=== PATIENT | female | born 1960 | race Hispanic/Latino ===

== ENCOUNTER 2022-05-26 13:28 | Emergency (ER) | payer OTHER, SELFPAY ==
[2022-05-26] VITALS (9 sets, daily range): BP systolic 118–153; BP diastolic 63–76; PULSE 63–86; RESP 16–22; TEMP 36.9–38.1; O2SAT 95–100; BMI 30.9
--- NOTE | 2022-05-26 13:52 | DI.RAD.S_ITS ---
PROCEDURE: XR CHEST 1V INDICATIONS: suspected sepsis TECHNIQUE: One view of the chest was acquired. COMPARISON: None. FINDINGS: Surgical changes and devices: None. Lungs and pleura: Lungs are clear. No pleural effusions or pneumothorax. Mediastinum: Mediastinal contours appear normal. Heart size is normal. Bones and chest wall: No suspicious bony lesions. Overlying soft tissues appear unremarkable. IMPRESSION: No acute cardiopulmonary abnormalities or focal airspace disease. Dictated by: Gage Lilly M.D. on 05/26/2022 at 14:45 Approved by: Gage Lilly M.D. on 05/26/2022 at 14:45
[2022-05-26 15:23] LABS: Add Manual Diff / Slide Review NO; Basophils Absolute Auto 0 /uL (0-100); Basophils Percent Auto 0.3 % (0-2); Eosinophils Absolute Auto 0 /uL (0-450); Eosinophils Percent Auto 0.3 % (2-4); Hematocrit 34.9 % (36-46); Hemoglobin 11.8 g/dL (12.0-16.0); Lymphocytes Absolute Auto 500 /uL (1100-4500); Lymphocytes Percent Auto 3.5 % (25-40); Mean Corpuscular HGB Conc 33.7 % (30-36); Mean Corpuscular Hemoglobin 30.5 PG (26-34); Mean Corpuscular Volume 90.4 fL (80-100); Monocytes Absolute Auto 1700 /uL (0-900); Monocytes Percent Auto 11.6 % (3-14); Neutrophils Absolute Auto 12600 /uL (1500-7000); Neutrophils Percent Auto 84.3 % (50-75); Platelet Count 277 X10^3/uL (150-400); Red Blood Cell Count 3.87 X10^6/uL (4.0-5.2); Red Cell Distribution Width 13.1 % (11.6-14.8); White Blood Cell Count 14.9 X10^3/uL (4.5-11.0)
[2022-05-26 15:33] LABS: INR 1.1 (0.9-1.3)
[2022-05-26 15:35] LABS: PTT Partial Thromboplastin Tim 29 SECONDS (26-36)
[2022-05-26 15:36] LABS: Lactate (Lactic Acid) 0.9 mmol/L (0.7-2.1)
[2022-05-26 15:37] LABS: Alanine Aminotransferase 46 IU/L (<35); Albumin 4.1 g/dL (3.5-5.0); Albumin Globulin Ratio 1.1 (1.0-2.8); Alkaline Phosphatase 134 U/L (38-126); Aspartate Aminotransferase 40 IU/L (14-36); Bilirubin Total 1.1 mg/dL (0.2-1.3); Blood Urea Nitrogen 16 mg/dL (7-17); Calcium 8.8 mg/dL (8.4-10.2); Carbon Dioxide 21 mmol/L (22-32); Chloride 94 mmol/L (98-107); Estimated Glomerular Filt Rate > 60 mL/min (>60); Globulin 3.9 g/dL (1.7-4.1); Glucose 128 mg/dL (80-110); HEMOLYSIS < 15 (0-50); Lipase 55 U/L (23-300); Potassium 3.4 mmol/L (3.4-5.1); Sodium 127 mmol/L (137-145)
[2022-05-26 15:54] LABS: Procalcitonin 0.61 ng/mL (<0.5)
[2022-05-26] MEDS: SODIUM CHLORIDE 0.9% 1,000 ML 1000 ML IV (15:59)
[2022-05-26 16:05] LABS: Adenovirus Not Detected (Not Detect); B. parapertussis Not Detected (Not Detecte); Bordetella pertussis Not Detected (Not Detecte); Chlamydophila pneumoniae Not Detected (Not Detect); Coronavirus 229E Not Detected (Not Detect); Coronavirus HKU1 Not Detected (Not Detect); Coronavirus NL 63 Not Detected (Not Detect); Coronavirus OC43 Not Detected (Not Detect); Human Metapneumovirus Not Detected (Not Detect); Human Rhinovirus/Enterovirus Not Detected (Not Detect); Influenza A Not Detected (Not Detect); Influenza B Not Detected (Not Detect); Mycoplasma pneumoniae Not Detected (Not Detect); Parainfluenza Virus 1 Not Detected (Not Detect); Parainfluenza Virus 2 Not Detected (Not Detect); Parainfluenza Virus 3 Not Detected (Not Detect); Parainfluenza Virus 4 Not Detected (Not Detect); Respiratory Syncytial Virus Not Detected (Not Detect); SARS- CoV-2 Not Detected (Not Detecte)
--- NOTE | 2022-05-26 16:41 | ED_ITS ---
HPI - Abdominal Pain General Chief Complaint: Abdominal Pain Stated Complaint: Fever, headache, nausea, r side abd pain Time Seen by Provider: 05/26/22 16:06 Source: patient and family Mode of arrival: Ambulatory History of Present Illness HPI narrative: Patient is a 62-year-old female history of hypothyroid diabetes presenting today with ongoing abdominal pain and fever. She was seen evaluated 2 days ago Abhishek mcgowan diagnosed with a UTI started on Macrobid. She would respiratory panel done at that time as well which was negative. She reports that she still has fever of 103. She has very minimal abdominal pain on the right side she is a prior history of cholecystectomy she has no flank pain no nausea vomiting. She is complaining of a mild headache but absolutely no neck pain. She is drinking fluids. Related Data Home Medications Medication Instructions Recorded Confirmed meloxicam 15 mg tablet 15 mg PO DAILY 07/10/18 12/13/20 omeprazole 20 mg capsule,delayed 20 mg PO DAILY 07/10/18 12/13/20 release sertraline 25 mg tablet 25 mg PO DAILY 07/10/18 12/13/20 simvastatin 10 mg tablet 10 mg PO QPM 07/10/18 12/13/20 Resmed Airsense 10 CPAP #1 ea 07/30/18 12/13/20 levothyroxine 75 mcg capsule 75 mcg PO DAILY 07/30/18 12/13/20 metformin PO BID 12/13/20 12/13/20 Allergies Allergy/AdvReac Type Severity Reaction Status Date / Time acetaminophen [From Percocet] Allergy Unknown Verified 12/13/20 09:36 oxycodone [From Percocet] Allergy Unknown Verified 12/13/20 09:36 Penicillins Allergy Unknown Verified 12/13/20 09:36 Review of Systems Review of Systems ROS Unobtainable: All systems reviewed & are unremarkable except as noted in HPI and below Patient History Medical History Depression Hyperlipidemia Hypertension Hypothyroidism Obesity (BMI 30-39.9) (01/15/18) Obstructive sleep apnea of adult (~04/2017) Primary insomnia (~04/2017) Snoring (~04/2017) Type 2 diabetes mellitus Social History marital status: household members: spouse lives independently: Yes caregiver/support person: No housing: house occupational status: employed current occupational exposures/hazards: Yes Previous occupational history: potential for Covid exposure Smoking Status: Former smoker Smoking Status: Former smoker Substance Use Type: does not use Exam Initial Vital Signs Initial Vital Signs: Vital Signs Temperature 100.5 F H 05/26/22 13:43 Pulse Rate 86 05/26/22 13:43 Respiratory Rate 16 05/26/22 13:43 Blood Pressure 118/69 05/26/22 13:43 Pulse Oximetry 97 05/26/22 13:43 Oxygen Delivery Method Room Air 05/26/22 13:43 GENERAL: Alert pleasant 62-year-old female HEENT: Head atraumatic,EOMI, pupils reactive, face symmetric, moist mucous membranes, no meningeal signs CARDIOVASCULAR: Regular rate and rhythm without murmurs, rubs or gallops. RESPIRATORY: Breath sounds equal bilaterally, no wheezes rales or rhonchi. ABDOMEN: Soft, nontender. Normoactive bowel sounds all 4 quadrants. No guarding or rebound. Negative Mak's no distention : No CVA tenderness EXTREMITIES: Normal range of motion, no clubbing or edema. Neurovascularly intact NEUROLOGICAL: Alert and oriented x4.Normal gait and speech. SKIN: Warm, dry, no laceration, no petechiae, no rashes or lesions. Course Orders Ordered: Discontinued Medications Sodium Chloride (Normal Saline 0.9%) 1,000 mls @ 1,000 mls/hr IV BOLUS ONE Stop: 05/26/22 14:51 Last Infusion: 05/26/22 18:05 Dose: 0 mls/hr Documented By: Admin: 05/26/22 15:59 Dose: 1,000 mls/hr Documented By: ANICETO Ceftriaxone Sodium 1,000 mg/ (Sodium Chloride) 100 mls @ 200 mls/hr IV NOW ONE Stop: 05/26/22 17:02 Last Infusion: 05/26/22 18:45 Dose: 0 mls/hr Documented By: Admin: 05/26/22 18:03 Dose: 200 mls/hr Documented By: JANE Ketorolac Tromethamine (Ketorolac 30 Mg/Ml Vial) 15 mg IV NOW ONE Stop: 05/26/22 17:02 Last Admin: 05/26/22 17:59 Dose: 15 mg Documented By: AJNE Morphine Sulfate (Morphine 2 Mg/Ml Inj) 2 mg IV NOW ONE Stop: 05/26/22 17:07 Last Admin: 05/26/22 17:56 Dose: 2 mg Documented By: JANE Ondansetron HCl (Ondansetron 4 Mg Odt) 4 mg SL NOW PRN PRN Reason: Nausea And Vomiting Ondansetron HCl (Ondansetron 4 Mg/2 Ml Inj) 4 mg IV NOW PRN PRN Reason: Nausea And Vomiting Last Admin: 05/26/22 18:02 Dose: 4 mg Documented By: JANE Vital Signs Vital signs: Vital Signs - 8 hr 05/26/22 13:43 05/26/22 15:55 05/26/22 15:55 Temperature 100.5 F H Pulse Rate 86 72 Respiratory Rate 16 18 Blood Pressure 118/69 128/63 Pulse Oximetry 97 95 Oxygen Delivery Method Room Air Room Air 05/26/22 16:00 05/26/22 16:00 05/26/22 16:30 Temperature Pulse Rate 71 Respiratory Rate Blood Pressure 119/68 132/67 Pulse Oximetry 98 Oxygen Delivery Method 05/26/22 16:30 05/26/22 17:55 05/26/22 17:56 Temperature Pulse Rate 68 71 Respiratory Rate 22 Blood Pressure 128/71 Pulse Oximetry 96 99 Oxygen Delivery Method Room Air 05/26/22 17:56 05/26/22 18:00 05/26/22 18:00 Temperature Pulse Rate 68 66 Respiratory Rate 20 Blood Pressure 131/76 Pulse Oximetry 98 98 Oxygen Delivery Method Room Air 05/26/22 18:30 05/26/22 18:30 Temperature Pulse Rate 63 Respiratory Rate 18 Blood Pressure 128/73 Pulse Oximetry 96 Oxygen Delivery Method Room Air MDM - Abdominal Pain Lab Data 05/26/22 15:10 05/26/22 15:10 Labs: Lab Results 05/26/22 05/26/22 05/26/22 Range/Units 13:54 15:10 15:10 WBC 14.9 H (4.5-11.0) X10^3/uL RBC 3.87 L (4.0-5.2) X10^6/uL Hgb 11.8 L (12.0-16.0) g/dL Hct 34.9 L (36-46) % MCV 90.4 (80-100) fL MCH 30.5 (26-34) PG MCHC 33.7 (30-36) % RDW 13.1 (11.6-14.8) % Plt Count 277 (150-400) X10^3/uL Neut % (Auto) 84.3 H (50-75) % Lymph % (Auto) 3.5 L (25-40) % [place] % (Auto) 11.6 (3-14) % Eos % (Auto) 0.3 L (2-4) % Baso % (Auto) 0.3 (0-2) % Neut # (Auto) 38348 H (1255-6492) /uL Lymph # (Auto) 500 L (1554-8231) /uL [place] # (Auto) 1700 H (0-900) /uL Eos # (Auto) 0 (0-450) /uL Baso # (Auto) 0 (0-100) /uL PT 13.0 H (10.1-12.7) SECONDS INR 1.1 (0.9-1.3) APTT 29 (26-36) SECONDS Sodium (137-145) mmol/L Potassium (3.4-5.1) mmol/L Chloride (98-107) mmol/L Carbon Dioxide (22-32) mmol/L BUN (7-17) mg/dL Creatinine (0.52-1.04) mg/dL Estimated GFR (>60) mL/min BUN/Creatinine Ratio (6-22) Glucose (80-110) mg/dL Lactate (0.7-2.1) mmol/L Calcium (8.4-10.2) mg/dL Total Bilirubin (0.2-1.3) mg/dL AST (14-36) IU/L ALT (<35) IU/L Alkaline Phosphatase (38-126) U/L Total Protein (6.3-8.2) g/dL Albumin (3.5-5.0) g/dL Globulin (1.7-4.1) g/dL Albumin/Globulin Ratio (1.0-2.8) Lipase (23-300) U/L Procalcitonin (<0.5) ng/mL Urine RBC (0-5/HPF) Urine WBC (0-5/HPF) Ur Squamous Epith Cells (0-5/HPF) Ur Transition Epith Cell (0-5/HPF) Urine Bacteria (None) Chlamy pneumoniae PCR Not detected (Not Detect) Adenovirus (PCR) Not detected (Not Detect) B. pertussis DNA (PCR) Not detected (Not Detecte) B.parapertussis DNA PCR Not detected (Not Detecte) Coronavirus OC43 (PCR) Not detected (Not Detect) Coronavirus HKU1 (PCR) Not detected (Not Detect) Coronavirus 229E (PCR) Not detected (Not Detect) SARS-CoV-2 (PCR) Not detected (Not Detecte) Coronavirus NL63 (PCR) Not detected (Not Detect) Human Metapneumovir PCR Not detected (Not Detect) Influenza Type A (PCR) Not detected (Not Detect) Influenza Type B (PCR) Not detected (Not Detect) M. pneumoniae (PCR) Not detected (Not Detect) Parainfluenza 1 (PCR) Not detected (Not Detect) Parainfluenza 2 (PCR) Not detected (Not Detect) Parainfluenza 3 (PCR) Not detected (Not Detect) Parainfluenza 4 (PCR) Not detected (Not Detect) RSV (PCR) Not detected (Not Detect) Entero/Rhino (PCR) Not detected (Not Detect) 05/26/22 05/26/22 05/26/22 Range/Units 15:10 15:10 16:37 WBC (4.5-11.0) X10^3/uL RBC (4.0-5.2) X10^6/uL Hgb (12.0-16.0) g/dL Hct (36-46) % MCV (80-100) fL MCH (26-34) PG MCHC (30-36) % RDW (11.6-14.8) % Plt Count (150-400) X10^3/uL Neut % (Auto) (50-75) % Lymph % (Auto) (25-40) % [place] % (Auto) (3-14) % Eos % (Auto) (2-4) % Baso % (Auto) (0-2) % Neut # (Auto) (8201-0108) /uL Lymph # (Auto) (7847-9627) /uL [place] # (Auto) (0-900) /uL Eos # (Auto) (0-450) /uL Baso # (Auto) (0-100) /uL PT (10.1-12.7) SECONDS INR (0.9-1.3) APTT (26-36) SECONDS Sodium 127 L (137-145) mmol/L Potassium 3.4 (3.4-5.1) mmol/L Chloride 94 L (98-107) mmol/L Carbon Dioxide 21 L (22-32) mmol/L BUN 16 (7-17) mg/dL Creatinine 1.00 (0.52-1.04) mg/dL Estimated GFR > 60 (>60) mL/min BUN/Creatinine Ratio 16.0 (6-22) Glucose 128 H (80-110) mg/dL Lactate 0.9 (0.7-2.1) mmol/L Calcium 8.8 (8.4-10.2) mg/dL Total Bilirubin 1.1 (0.2-1.3) mg/dL AST 40 H (14-36) IU/L ALT 46 H (<35) IU/L Alkaline Phosphatase 134 H (38-126) U/L Total Protein 8.0 (6.3-8.2) g/dL Albumin 4.1 (3.5-5.0) g/dL Globulin 3.9 (1.7-4.1) g/dL Albumin/Globulin Ratio 1.1 (1.0-2.8) Lipase 55 (23-300) U/L Procalcitonin 0.61 H (<0.5) ng/mL Urine RBC 0-1/hpf (0-5/HPF) Urine WBC 0-1/hpf (0-5/HPF) Ur Squamous Epith Cells 0-1 /hpf (0-5/HPF) Ur Transition Epith Cell 0-1/hpf (0-5/HPF) Urine Bacteria Occasional (0-1) (None) Chlamy pneumoniae PCR (Not Detect) Adenovirus (PCR) (Not Detect) B. pertussis DNA (PCR) (Not Detecte) B.parapertussis DNA PCR (Not Detecte) Coronavirus OC43 (PCR) (Not Detect) Coronavirus HKU1 (PCR) (Not Detect) Coronavirus 229E (PCR) (Not Detect) SARS-CoV-2 (PCR) (Not Detecte) Coronavirus NL63 (PCR) (Not Detect) Human Metapneumovir PCR (Not Detect) Influenza Type A (PCR) (Not Detect) Influenza Type B (PCR) (Not Detect) M. pneumoniae (PCR) (Not Detect) Parainfluenza 1 (PCR) (Not Detect) Parainfluenza 2 (PCR) (Not Detect) Parainfluenza 3 (PCR) (Not Detect) Parainfluenza 4 (PCR) (Not Detect) RSV (PCR) (Not Detect) Entero/Rhino (PCR) (Not Detect) Point of care testing: Urine Dip Bedside Urine Glucose Negative Bedside Urine Bilirubin - Negative Bedside Urine Ketone + 15 Urine Specific [place] 1.010 Bedside Urine Occult Blood - Negative Bedside Urine pH 6.0 Bedside Urine Protein +/- 15 Bedside Urine Urobilinogen - Negative Bedside Urine Nitrite - Negative Bedside Urine Leukocytes - Negative Esterase Imaging Data Chest x-ray: Radiologist's Impression: PROCEDURE:? XR CHEST 1V ? INDICATIONS:? suspected sepsis ? TECHNIQUE:? One view of the chest was acquired.? ? COMPARISON:? None. ? FINDINGS:? ? Surgical changes and devices:? None.? ? Lungs and pleura:? Lungs are clear.? No pleural effusions or pneumothorax.? ? Mediastinum:? Mediastinal contours appear normal.? Heart size is normal.? ? Bones and chest wall:? No suspicious bony lesions.? Overlying soft tissues appear unremarkable.? ? IMPRESSION:? No acute cardiopulmonary abnormalities or focal airspace disease. ? Dictated by: Gage Lilly M.D. on 05/26/2022 at 14:45 ? ? MDM Narrative Medical decision making narrative: Patient 62-year-old female who was diagnosed with a UTI few days prior presenting today with ongoing mild abdominal cramping. Abdominal exam is benign and nontender. She is found have leukocytosis 14, with left shift no anemia she is also found to have mild hyponatremia sodium 27 chloride 94 carbon dioxide 21 BUN 16 and creatinine 1.0 lactate is 0.9 with an elevated procalcitonin 0.61. Urinalysis today is negative. Would be records have been received and reviewed. However culture was not sent her is not back yet. I recommend that she keep taking her antibiotic until culture returns. Blood cultures are pending here she did receive a dose IV Rocephin and normal saline. At this time she overall appears well she does not meet any severe sepsis criteria or need admission at this time. She was also complaining of mild headache however she is absolutely no meningeal signs she is a diagnosed UTI I suspect that this is what is causing her fever and symptoms. Headache improved with Toradol and morphine. No focal deficits. At this time I do not think lumbar puncture is warranted. Discharge Plan Departure Patient Disposition: Home Clinical Impression: UTI (urinary tract infection) Instructions: DI for Urinary Tract Infection (UTI) Activity Restrictions/Additional Instructions: *You have been diagnosed with UTI *What to do: At this time please keep taking her antibiotics. Would be should call you if your antibiotics need to be changed. You were given 1 dose of IV antibiotics here along with fluids. Keep hydrated *Continue to take medications as directed Tylenol 1000 mg every 6 hours if needed for [id number] pain or *Follow up with your primary care provider in 2-3 days or call [phone] *Return to ER if you should have worsening pain persistent vomiting confusion or any new, worsening or concerning symptoms Prescriptions: No Action meloxicam 15 mg tablet 15 mg PO DAILY simvastatin 10 mg tablet 10 mg PO QPM sertraline 25 mg tablet 25 mg PO DAILY omeprazole 20 mg capsule,delayed release(DR/EC) 20 mg PO DAILY (DME) Resmed Airsense 10 CPAP Qty: 1 Dose Instruction: As directed Patient Comments: Pressure: 6-12 cmH2O DME: [facility] Rx Instructions: As directed levothyroxine 75 mcg capsule 75 mcg PO DAILY metformin PO BID Referrals: Marlyn Koo DO [Primary Care Provider] - Stand Alone Forms: Patient Portal/API
[2022-05-26] MEDS: MORPHINE 2 MG/ML INJ IV (17:56)
[2022-05-26] MEDS: KETOROLAC 30 MG/ML VIAL 15 MG IV (17:59)
[2022-05-26] MEDS: ONDANSETRON 4 MG/2 ML INJ IV (18:02)
[2022-05-26] MEDS: cefTRIAXone 1,000 MG in SODIUM CHLORIDE 0.9% 100 ML 200 MG IV (18:03)
[2022-05-26 18:12] LABS: Bacteria Urine Occasional (0-1); RBC Urine 0-1/HPF (0-5/HPF); Squamous Epithelial Cell Urine 0-1 /HPF (0-5/HPF); Transitional Epi Cells Urine 0-1/HPF (0-5/HPF); WBC Urine 0-1/HPF (0-5/HPF)
== END 2022-05-26 19:45 | disposition home or self-care (01) ==
PROVIDERS: Emergency Provider Emergency Medicine; PCP Family Medicine
DX: N39.0 Urinary tract infection, site not specified (principal); E87.1 Hypo-osmolality and hyponatremia
CPT/HCPCS: 36415; 71045; 80053; 81003; 81015; 83605; 83690; 84145; 85025; 85610; 85730; 87040; 87086; 87633; 96361; 96365; 96375; 99284; J0696; J1885; J2270; J2405

== ENCOUNTER 2022-12-20 09:13 | Day surgery (SDC) | payer OTHER, SELFPAY ==
--- NOTE | 2022-12-20 | PATH_ITS ---
[facility] Accession Number: [id number] No. of containers..01 Tissue . 01 Material submitted: . colon - SIGMOID POLYP . 01 Diagnosis: Sigmoid Colon Polyp: Tubular adenoma. MRV 12/22/2022 1233 Local . 01 Electronically signed: . Irvin Mercado MD, PhD, Pathologist NPI- [id number] . 01 Gross description: . SIGMOID POLYP: Received in formalin is 1 fragment(s) of anderson, soft tissue measuring 1.0 x 0.5 x 0.2 cm submitted entirely in 1 cassette(s) /AAY 12/21/2022 0357 Local . 01 Pathologist provided ICD-10: D12.5 . 01 CPT . 504032 Specimen Comment: A courtesy copy of this report has been sent to [phone] Performed at: 01 [facility] [address] [place] [address], [place], [place] [id number] MD Ton Jefferson MD Phone: [phone]
[2022-12-20 09:56] VITALS: BMI 30.7
[2022-12-20 10:00] VITALS: BP 125/86; PULSE 82; RESP 12; TEMP 36.3; O2SAT 96
[2022-12-20] MEDS: LACTATED RINGERS 1,000 ML 42 ML IV (10:10)
--- NOTE | 2022-12-20 10:48 | P.HP_ITS ---
History of Present Illness History of Present Illness Date Patient Seen: 12/20/22 Time Patient Seen: 10:49 Chief complaint: Colonoscopy Narrative: Inés had a colonoscopy about 13 years ago that was normal. She has no known family history of colon cancer. [facility] Medical History Depression Hyperlipidemia Hypertension Hypothyroidism Obesity (BMI 30-39.9) (01/15/18) Obstructive sleep apnea of adult (~04/2017) Primary insomnia (~04/2017) Snoring (~04/2017) Type 2 diabetes mellitus Social History marital status: household members: spouse lives independently: Yes caregiver/support person: No housing: house occupational status: employed current occupational exposures/hazards: Yes Previous occupational history: potential for Covid exposure Smoking Status: Former smoker alcohol intake: current Meds Home Medications and Allergies Home Medications Medication Instructions Recorded Confirmed Type meloxicam 15 mg tablet 15 mg PO DAILY 07/10/18 12/20/22 History omeprazole 20 mg capsule,delayed 20 mg PO DAILY 07/10/18 12/20/22 History release sertraline 25 mg tablet 25 mg PO DAILY 07/10/18 12/20/22 History Resmed Airsense 10 CPAP #1 ea 07/30/18 12/13/20 History levothyroxine 75 mcg capsule 75 mcg PO DAILY 07/30/18 12/20/22 History sodium,potassium,mag sulfates 17.5 See Rx Instructions PO .COMPLEX 10/27/22 12/20/22 Rx gram-3.13 gram-1.6 gram oral soln #354 mL (Suprep Bowel Prep Kit) atorvastatin 20 mg tablet 20 mg PO DAILY 12/20/22 12/20/22 History hydrochlorothiazide 25 mg tablet 25 mg PO DAILY 12/20/22 12/20/22 History losartan 25 mg tablet 12.5 mg PO DAILY 12/20/22 12/20/22 History metformin 500 mg tablet 500 mg PO BID 12/20/22 12/20/22 History Allergies Allergy/AdvReac Type Severity Reaction Status Date / Time oxycodone [From Percocet] Allergy Unknown Hives Verified 12/20/22 09:50 Penicillins Allergy Unknown Rash Verified 12/20/22 09:50 Exam Vital Signs (past 8 hours): - 12/20/22 10:00 Temperature 97.4 F L Pulse Rate 82 Respiratory Rate 12 Blood Pressure 125/86 Pulse Oximetry 96 Oxygen Delivery Method Room Air Oxygen Delivery Method Room Air Const General: No acute distress Assessment & Plan Assessment and plan (1) Colon cancer screening: Status: Acute Plan Inés is a 62 year old woman who is here for colonoscopy. We reviewed the risks and benefits and she would like to proceed.
--- NOTE | 2022-12-20 11:44 | PM.OP.COLON ---
Operative Date/Time/Diagnoses Date of procedure: 12/20/22 Time of procedure: 11:45 Pre-op diagnosis: Colon cancer screening Post-op diagnosis: same Procedure & Clinicians Study performed: Colonoscopy Same procedure as scheduled: Yes Surgeon: Alton Nunes Procedure Notes Procedure in detail: Surgeon: Alton Nunes MD Anesthesia: Genet Mckay DO Procedure: The patient was brought to the endoscopy suite, placed in left lateral decubitus position. The patient was connected to monitoring devices. A time-out was performed. Sedation was administered. Once the patient was adequately sedated, a digital rectal exam was performed and was normal. The scope was then inserted and advanced to the cecum where the appendiceal orifice was identified and photographed. The scope was then slowly withdrawn over greater than 6 minutes. The mucosa was thoroughly inspected. There was sigmoid diverticulosis. There was a 7 mm polyp in the descending colon removed with a cold snare. There was some mild persistent oozing from the polypectomy site and a hemostatic clip was applied with good effect. The scope was retroflexed in the rectum. No other abnormalities were seen. The scope was straightened and removed. The patient was awakened and brought to recovery. Scope withdrawal time: 11 minutes Sedation time: 17 minutes EBL: 5 mL Findings: Sigmoid diverticulosis and a 7 mm polyp in the sigmoid colon Post-procedure Disposition: PACU
[2022-12-20 11:45] VITALS: BP 103/68; PULSE 76; RESP 15; TEMP 36.9; O2SAT 95
[2022-12-20 11:50] VITALS: BP 100/66; PULSE 75; RESP 18; O2SAT 93
[2022-12-20 11:55] VITALS: BP 106/66; PULSE 74; RESP 19; O2SAT 96
[2022-12-20 12:00] VITALS: BP 113/70; PULSE 72; RESP 16; TEMP 37.1; O2SAT 98
== END 2022-12-20 12:10 | disposition home or self-care (01) ==
PROVIDERS: Surgery; PCP Family Medicine; Referring Provider Surgery; Visit Provider Surgery
PROC: 0DJD8ZZ Inspection of Lower Intestinal Tract, Via Natural or Artificial Opening Endoscopic (ICD-10-PCS; CPT 45378; principal; 2022-12-20 11:00)
DX: Z12.11 Encounter for screening for malignant neoplasm of colon (principal); K57.30 Diverticulosis of large intestine without perforation or abscess without bleeding; D12.5 Benign neoplasm of sigmoid colon
CPT/HCPCS: 45385; J2704

== ENCOUNTER 2023-09-16 15:09 | Emergency (ER) | payer OTHER, SELFPAY ==
[2023-09-16] VITALS (12 sets, daily range): BP systolic 114–148; BP diastolic 55–76; PULSE 88–117; RESP 19–32; TEMP 38.3–39.4; O2SAT 92–98; BMI 32.5
--- NOTE | 2023-09-16 15:27 | EKG_ITS ---
[address] [address] Test Date: 2023-09-16 Pat Name: Inés Gutierrez Department: [facility] Room: Gender: Female Emissions Inspector: CELESTINE : 1960 Requested By: Order Number: [id number] Reading MD: Spencer Kamara MD Measurements Intervals [place] Rate: 101 P: 36 OH: 178 QRS: -1 QRSD: 78 T: 54 QT: 340 QTc: 440 Interpretive Statements Sinus tachycardia Electronically Signed On 09-17-2023 7:35:56 PDT by Spencer Kamara MD
--- NOTE | 2023-09-16 15:30 | DI.RAD.S_ITS ---
PROCEDURE: XR CHEST 1V INDICATIONS: Shortness of breath TECHNIQUE: One view of the chest was acquired. COMPARISON: [facility], , XR CHEST 1V, 05/26/2022, 14:06. FINDINGS: Surgical changes and devices: Cholecystectomy clips are seen. Lungs and pleura: Lungs are clear. No pleural effusions or pneumothorax. Mediastinum: Mediastinal contours appear normal. Heart size is normal. Bones and chest wall: No suspicious bony lesions. Overlying soft tissues appear unremarkable. IMPRESSION: Portable chest within normal limits for age. Dictated by: Viet Snider M.D. on 09/16/2023 at 14:50 Approved by: Viet Snider M.D. on 09/16/2023 at 14:50
[2023-09-16] MEDS: ACETAMINOPHEN 325 MG TABLET 975 MG PO (15:34)
[2023-09-16] MEDS: ONDANSETRON 4 MG/2 ML INJ IV (16:15)
[2023-09-16 16:17] LABS: Influenza A - CEPHEID Flu A NEGATIVE (NEGATIVE); Influenza B - CEPHEID Flu B NEGATIVE (NEGATIVE); Respiratory Syncytial Virus Negative (Negative)
[2023-09-16 16:22] LABS: Add Manual Diff / Slide Review NO; Basophils Absolute Auto 0 /uL (0-100); Basophils Percent Auto 0.1 % (0-2); Eosinophils Absolute Auto 0 /uL (0-450); Eosinophils Percent Auto 0.1 % (2-4); Hematocrit 32.8 % (36-46); Hemoglobin 11.3 g/dL (12.0-16.0); Lymphocytes Absolute Auto 300 /uL (1100-4500); Mean Corpuscular HGB Conc 34.5 % (30-36); Mean Corpuscular Hemoglobin 31.5 PG (26-34); Mean Corpuscular Volume 91.2 fL (80-100); Monocytes Absolute Auto 600 /uL (0-900); Monocytes Percent Auto 5.5 % (3-14); Neutrophils Absolute Auto 9800 /uL (1500-7000); Neutrophils Percent Auto 91.3 % (50-75); Platelet Count 241 X10^3/uL (150-400); Red Cell Distribution Width 12.9 % (11.6-14.8); White Blood Cell Count 10.7 X10^3/uL (4.5-11.0)
[2023-09-16 16:23] LABS: COVID-19 CEPHEID 4-PLEX PCR Negative (Negative)
[2023-09-16] MEDS: SODIUM CHLORIDE 0.9% 1,000 ML 1000 ML IV (16:30)
[2023-09-16 16:36] LABS: Alanine Aminotransferase 34 IU/L (<35); Albumin 4.5 g/dL (3.5-5.0); Albumin Globulin Ratio 1.5 (1.0-2.8); Alkaline Phosphatase 107 U/L (38-126); Aspartate Aminotransferase 39 IU/L (14-36); Bilirubin Total 0.9 mg/dL (0.2-1.3); Blood Urea Nitrogen 19 mg/dL (7-17); Calcium 9.1 mg/dL (8.4-10.2); Carbon Dioxide 23 mmol/L (22-32); Chloride 101 mmol/L (98-107); Estimated Glomerular Filt Rate > 60 mL/min (>60); Glucose 146 mg/dL (80-110); HEMOLYSIS < 15 (0-50); Lipase 95 U/L (23-300); Potassium 3.8 mmol/L (3.4-5.1); Sodium 131 mmol/L (137-145); Total Protein 7.5 g/dL (6.3-8.2)
[2023-09-16 16:58] LABS: Lactate (Lactic Acid) 2.1 mmol/L (0.7-2.1)
[2023-09-16] MEDS: cefTRIAXone 1,000 MG in SODIUM CHLORIDE 0.9% 100 ML 200 MG IV (17:00)
[2023-09-16 17:01] LABS: Troponin I < 0.012 ng/mL (0.01-0.034)
[2023-09-16 17:05] LABS: Bacteria Urine Many (>30); RBC Urine None Seen (0-5/HPF); Squamous Epithelial Cell Urine 1-5 /HPF (0-5/HPF); Urine Volume 10mL (spun); WBC Urine 10-30/HPF (0-5/HPF)
--- NOTE | 2023-09-16 17:08 | ED_ITS ---
HPI - General Adult General Chief complaint: Fever Stated complaint: fever 105.4, shakiness, chills Time Seen by Provider: 09/16/23 16:15 Source: patient Mode of arrival: Ambulatory Limitations: no limitations History of Present Illness HPI narrative: Patient is a 63-year-old female who is here for evaluation of just over 24 hours of a fever, shaking, chills and nausea. States she woke up this morning with symptoms. Did have some lower back discomfort. No diarrhea. No sore throat. No chest pain. No shortness of breath. No skin changes. No abdominal pain. She denies any urinary tract infection like symptoms although states she was ?prone? urinary tract infections. No known sick contacts. No recent travel. Has been who is in room has no symptoms. She did not take her medications today because of nausea. Related Data Home Medications Medication Instructions Recorded Confirmed meloxicam 15 mg tablet 15 mg PO DAILY 07/10/18 12/20/22 omeprazole 20 mg capsule,delayed 20 mg PO DAILY 07/10/18 12/20/22 release sertraline 25 mg tablet 25 mg PO DAILY 07/10/18 12/20/22 Resmed Airsense 10 CPAP #1 ea 07/30/18 12/13/20 levothyroxine 75 mcg capsule 75 mcg PO DAILY 07/30/18 12/20/22 atorvastatin 20 mg tablet 20 mg PO DAILY 12/20/22 12/20/22 hydrochlorothiazide 25 mg tablet 25 mg PO DAILY 12/20/22 12/20/22 losartan 25 mg tablet 12.5 mg PO DAILY 12/20/22 12/20/22 metformin 500 mg tablet 500 mg PO BID 12/20/22 12/20/22 Previous Rx's Medication Instructions Recorded sodium,potassium,mag sulfates 17.5 See Rx Instructions PO .COMPLEX 10/27/22 gram-3.13 gram-1.6 gram oral soln #354 mL (Suprep Bowel Prep Kit) ondansetron 4 mg disintegrating 4 mg PO Q8H PRN nausea and 09/16/23 tablet vomiting #10 tabs sulfamethoxazole 800 1 tab PO BID 3 days #6 tabs 09/16/23 mg-trimethoprim 160 mg tablet (Bactrim DS) Allergies Allergy/AdvReac Type Severity Reaction Status Date / Time oxycodone [From Percocet] Allergy Unknown Hives Verified 12/20/22 09:50 Penicillins Allergy Unknown Rash Verified 12/20/22 09:50 Review of Systems Review of Systems ROS Unobtainable: All systems reviewed & are unremarkable except as noted in HPI and below Patient History Medical History Type 2 diabetes mellitus Hypothyroidism Obesity (BMI 30-39.9) (01/15/18) Depression Hyperlipidemia Hypertension Obstructive sleep apnea of adult (~04/2017) Primary insomnia (~04/2017) Snoring (~04/2017) Social History marital status: household members: spouse lives independently: Yes caregiver/support person: No housing: house occupational status: employed current occupational exposures/hazards: Yes Previous occupational history: potential for Covid exposure Smoking Status: Former smoker alcohol intake: current Smoking Status: Former smoker alcohol intake frequency: 0-2 drinks per day Substance Use Type: does not use Exam Initial Vital Signs Initial Vital Signs: Vital Signs Temperature 102.9 F H 09/16/23 15:18 Pulse Rate 117 H 09/16/23 15:18 Respiratory Rate 19 09/16/23 15:18 Blood Pressure 146/74 H 09/16/23 15:18 Pulse Oximetry 97 09/16/23 15:18 Oxygen Delivery Method Room Air 09/16/23 15:18 Const General: cooperative, comfortable and No ill appearing HENMT Head: normal to inspection and normocephalic Resp Effort & Inspection: normal respiratory effort Auscultation: clear to auscultation bilaterally Cardio Rate: tachycardic Rhythm: regular rhythm GI Inspection: normal to inspection and non-distended Skin General: no rashes or lesions noted Neuro General: patient alert, patient awake, patient oriented x3 and moves all extremities Extrem General: normal to inspection and capillary refill normal Scores GCS Anna coma scale eye opening: Spontaneous Anna coma scale verbal response: Orientated [place] coma scale motor response: Obey commands [place] coma scale total score: 15 Course Orders Ordered: ED Orders 09/16/23 15:27 EKG-12 Lead Stat 09/16/23 15:30 XR chest 1V Stat 09/16/23 15:31 Covid-19 + FLU A/B + RSV - PCR Stat 09/16/23 16:07 Complete Blood Count AUTO DIFF Stat Comprehensive Metabolic Panel Stat Lactate (Lactic Acid) Stat Lipase Stat Troponin I Stat 09/16/23 16:40 Urine Culture Stat Urine Microscopic Stat Ondansetron HCl (Ondansetron 4 Mg/2 Ml Inj) 4 mg IV NOW PRN PRN Reason: Nausea And Vomiting Last Admin: 09/16/23 16:15 Dose: 4 mg Documented By: SOLO Ondansetron HCl (Ondansetron 4 Mg Odt) 4 mg PO NOW PRN PRN Reason: Nausea And Vomiting Discontinued Medications Acetaminophen (Acetaminophen 325 Mg Tablet) 975 mg PO NOW ONE Stop: 09/16/23 15:27 Last Admin: 09/16/23 15:34 Dose: 975 mg Documented By: YUNG Ceftriaxone Sodium 1,000 mg/ (Sodium Chloride) 100 mls @ 200 mls/hr IV NOW ONE Stop: 09/16/23 16:17 Last Infusion: 09/16/23 17:34 Dose: Infused Documented By: Admin: 09/16/23 17:00 Dose: 200 mls/hr Documented By: YUNG Sodium Chloride (Normal Saline 0.9%) 1,000 mls @ 1,000 mls/hr IV BOLUS ONE Stop: 09/16/23 17:15 Last Infusion: 09/16/23 17:34 Dose: Infused Documented By: Admin: 09/16/23 16:30 Dose: 1,000 mls/hr Documented By: SOLO Ketorolac Tromethamine (Ketorolac 30 Mg/Ml Vial) 30 mg IV NOW ONE Stop: 09/16/23 18:57 Ondansetron HCl (Ondansetron 4 Mg Odt Prepack) 1 bottle MISC DIRECTED ONE Stop: 09/16/23 18:57 Vital Signs Vital signs: Vital Signs - 8 hr 09/16/23 15:18 09/16/23 16:08 09/16/23 16:10 Temperature 102.9 F H Pulse Rate 117 H 110 H 106 H Respiratory Rate 19 Blood Pressure 146/74 H Pulse Oximetry 97 95 98 Oxygen Delivery Method Room Air 09/16/23 16:10 09/16/23 16:29 09/16/23 16:29 Temperature 101.7 F H 102.3 F H 102.3 F H Pulse Rate Respiratory Rate Blood Pressure 147/76 H Pulse Oximetry Oxygen Delivery Method 09/16/23 16:30 09/16/23 16:30 09/16/23 16:39 Temperature Pulse Rate 104 H 110 H Respiratory Rate 31 H 30 H Blood Pressure 124/64 Pulse Oximetry 94 92 Oxygen Delivery Method 09/16/23 16:39 09/16/23 17:00 09/16/23 17:00 Temperature 101.6 F H Pulse Rate 105 H Respiratory Rate 32 H Blood Pressure 148/71 H 133/60 Pulse Oximetry 94 Oxygen Delivery Method 09/16/23 17:30 09/16/23 17:30 09/16/23 18:00 Temperature Pulse Rate 109 H 97 H Respiratory Rate 26 H 23 Blood Pressure 114/55 L Pulse Oximetry 94 93 Oxygen Delivery Method Room Air 09/16/23 18:00 09/16/23 18:26 Temperature 101 F H Pulse Rate Respiratory Rate Blood Pressure 117/58 L Pulse Oximetry 96 Oxygen Delivery Method Room Air Medical Decision Making Lab Data Lab results reviewed: Yes I reviewed the patient's lab results. 09/16/23 16:07 09/16/23 16:07 Labs: Lab Results 09/16/23 09/16/23 09/16/23 Range/Units 15:31 16:07 16:40 WBC 10.7 (4.5-11.0) X10^3/uL RBC 3.60 L (4.0-5.2) X10^6/uL Hgb 11.3 L (12.0-16.0) g/dL Hct 32.8 L (36-46) % MCV 91.2 (80-100) fL MCH 31.5 (26-34) PG MCHC 34.5 (30-36) % RDW 12.9 (11.6-14.8) % Plt Count 241 (150-400) X10^3/uL Neut % (Auto) 91.3 H (50-75) % Lymph % (Auto) 3.0 L (25-40) % [place] % (Auto) 5.5 (3-14) % Eos % (Auto) 0.1 L (2-4) % Baso % (Auto) 0.1 (0-2) % Neut # (Auto) 9800 H (8452-3913) /uL Lymph # (Auto) 300 L (4833-5528) /uL [place] # (Auto) 600 (0-900) /uL Eos # (Auto) 0 (0-450) /uL Baso # (Auto) 0 (0-100) /uL Sodium 131 L (137-145) mmol/L Potassium 3.8 (3.4-5.1) mmol/L Chloride 101 (98-107) mmol/L Carbon Dioxide 23 (22-32) mmol/L BUN 19 H (7-17) mg/dL Creatinine 0.95 (0.52-1.04) mg/dL Estimated GFR > 60 (>60) mL/min BUN/Creatinine Ratio 20.0 (6-22) Glucose 146 H (80-110) mg/dL Lactate 2.1 (0.7-2.1) mmol/L Calcium 9.1 (8.4-10.2) mg/dL Total Bilirubin 0.9 (0.2-1.3) mg/dL AST 39 H (14-36) IU/L ALT 34 (<35) IU/L Alkaline Phosphatase 107 (38-126) U/L Troponin I < 0.012 (0.01-0.034) ng/mL Total Protein 7.5 (6.3-8.2) g/dL Albumin 4.5 (3.5-5.0) g/dL Globulin 3.0 (1.7-4.1) g/dL Albumin/Globulin Ratio 1.5 (1.0-2.8) Lipase 95 (23-300) U/L Urine RBC None seen (0-5/HPF) Urine WBC 10-30/hpf H (0-5/HPF) Ur Squamous Epith Cells 1-5 /hpf (0-5/HPF) Urine Bacteria Many (>30) H (None) Vol Urine Centrifuged 10ml (spun) SARS-CoV-2 (PCR) Negative (Negative) Influenza A (RT-PCR) Flu a negative (NEGATIVE) Influenza B (RT-PCR) Flu b negative (NEGATIVE) RSV (PCR) Negative (Negative) 09/16/23 Range/Units 18:10 WBC (4.5-11.0) X10^3/uL RBC (4.0-5.2) X10^6/uL Hgb (12.0-16.0) g/dL Hct (36-46) % MCV (80-100) fL MCH (26-34) PG MCHC (30-36) % RDW (11.6-14.8) % Plt Count (150-400) X10^3/uL Neut % (Auto) (50-75) % Lymph % (Auto) (25-40) % [place] % (Auto) (3-14) % Eos % (Auto) (2-4) % Baso % (Auto) (0-2) % Neut # (Auto) (8941-6196) /uL Lymph # (Auto) (9655-8669) /uL [place] # (Auto) (0-900) /uL Eos # (Auto) (0-450) /uL Baso # (Auto) (0-100) /uL Sodium (137-145) mmol/L Potassium (3.4-5.1) mmol/L Chloride (98-107) mmol/L Carbon Dioxide (22-32) mmol/L BUN (7-17) mg/dL Creatinine (0.52-1.04) mg/dL Estimated GFR (>60) mL/min BUN/Creatinine Ratio (6-22) Glucose (80-110) mg/dL Lactate 1.0 (0.7-2.1) mmol/L Calcium (8.4-10.2) mg/dL Total Bilirubin (0.2-1.3) mg/dL AST (14-36) IU/L ALT (<35) IU/L Alkaline Phosphatase (38-126) U/L Troponin I (0.01-0.034) ng/mL Total Protein (6.3-8.2) g/dL Albumin (3.5-5.0) g/dL Globulin (1.7-4.1) g/dL Albumin/Globulin Ratio (1.0-2.8) Lipase (23-300) U/L Urine RBC (0-5/HPF) Urine WBC (0-5/HPF) Ur Squamous Epith Cells (0-5/HPF) Urine Bacteria (None) Vol Urine Centrifuged SARS-CoV-2 (PCR) (Negative) Influenza A (RT-PCR) (NEGATIVE) Influenza B (RT-PCR) (NEGATIVE) RSV (PCR) (Negative) Urine Dip Bedside Urine Glucose Negative Bedside Urine Bilirubin - Negative Bedside Urine Ketone - Negative Urine Specific [place] 1.015 Bedside Urine Occult Blood - Negative Bedside Urine pH 8.0 Bedside Urine Protein - Negative Bedside Urine Urobilinogen - Negative Bedside Urine Nitrite - Negative Bedside Urine Leukocytes +++ 500 Esterase Point of care testing: Urine Dip Bedside Urine Glucose Negative Bedside Urine Bilirubin - Negative Bedside Urine Ketone - Negative Urine Specific [place] 1.015 Bedside Urine Occult Blood - Negative Bedside Urine pH 8.0 Bedside Urine Protein - Negative Bedside Urine Urobilinogen - Negative Bedside Urine Nitrite - Negative Bedside Urine Leukocytes +++ 500 Esterase Imaging Data Chest x-ray: Radiologist's Impression: PROCEDURE: XR CHEST 1V INDICATIONS: Short ess of breath TECHNIQUE: One view of the chest was acquired. COMPARISON: [facility], , XR CHEST 1V, 05/26/2022, 14:06. FINDINGS: Surgical changes and devices: Cholecystectomy clips are seen. Lungs and pleura: Lungs are clear. No pleural effusions or pneumothorax. Mediastinum: Mediastinal contours appear normal. Heart size is normal. Bones and chest wall: No suspicious bony lesions. Overlying soft tissues appear unremarkable. IMPRESSION: Portable chest within normal limits for age. ECG Data Attestation: I personally reviewed and interpreted this ECG as follows: Interpretation: Sinus tachycardia Ventricular rate 101 Normal axis Normal QRS No ST T wave changes MDM Narrative Medical decision making narrative: Patient arrives febrile and tachycardic but no leukocytosis. Normal lactate. Not hypotensive. No specific symptoms here in the emergency department other than some nausea in the fevers and generally not feeling very well. She developed a headache while she was here but no other signs that would be concerning for meningitis. Her urinalysis does have white blood cells and leukocytes and also bacteria. I have low suspicion for pyelonephritis as her lower back pain is not CVA tenderness. She was tolerating oral intake. Received fluids and antibiotics and cultures here in the ER. No other specific source of infection lb. Her exam is not consistent with pneumonia, cellulitis, meningitis, upper respiratory infection or intra-abdominal infection she has no abdominal pain. She was tolerating oral intake so will discharge patient home on antibiotics for treatment of urinary tract infection. Also sent home with nausea medication. She was given return precautions and follow-up instructions. She expressed understanding and agreement. Discharge Plan Departure Patient Disposition: Home Clinical Impression: Urinary tract infection Instructions: DI for Urinary Tract Infection (UTI) Activity Restrictions/Additional Instructions: You can take Tylenol and or ibuprofen for any fevers or body aches. Be sure that you were increasing your fluid intake. Take the antibiotics as directed. Contact your primary provider for follow-up. Return to the emergency department for new or worsening symptoms. Prescriptions: New sulfamethoxazole-trimethoprim [Bactrim DS] 800-160 mg tablet 1 tab PO BID 3 Days Qty: 6 0RF ondansetron 4 mg tablet,disintegrating 4 mg PO Q8H PRN (Reason: nausea and vomiting) Qty: 10 0RF No Action sodium,potassium,mag sulfates [Suprep Bowel Prep Kit] 17.5-3.13-1.6 gram recon soln See Rx Instructions PO .COMPLEX Qty: 354 0RF Rx Instructions: take as directed by Physician metformin 500 mg tablet 500 mg PO BID atorvastatin 20 mg tablet 20 mg PO DAILY losartan 25 mg tablet 12.5 mg PO DAILY hydrochlorothiazide 25 mg tablet 25 mg PO DAILY meloxicam 15 mg tablet 15 mg PO DAILY sertraline 25 mg tablet 25 mg PO DAILY omeprazole 20 mg capsule,delayed release(DR/EC) 20 mg PO DAILY (DME) Resmed Airsense 10 CPAP Qty: 1 Dose Instruction: As directed Patient Comments: Pressure: 6-12 cmH2O DME: [facility] Rx Instructions: As directed levothyroxine 75 mcg capsule 75 mcg PO DAILY Referrals: Marlyn Koo DO [Primary Care Provider] - Stand Alone Forms: Patient Portal/API
[2023-09-16 17:54] LABS: Reflexed Lactate in 2 Hours Y
[2023-09-16] MEDS: KETOROLAC 30 MG/ML VIAL IV (19:13)
[2023-09-16] MEDS: ONDANSETRON 4 MG ODT PREPACK 1 BOTTLE MISC (19:14)
== END 2023-09-16 19:37 | disposition home or self-care (01) ==
PROVIDERS: Emergency Provider Emergency Medicine; PCP Family Medicine
DX: N39.0 Urinary tract infection, site not specified (principal); R00.0 Tachycardia, unspecified; M54.50 Low back pain, unspecified; Z79.899 Other long term (current) drug therapy; Z11.52 Encounter for screening for COVID-19
CPT/HCPCS: 0241U; 36415; 71045; 80053; 81003; 81015; 83605; 83690; 84484; 85025; 87086; 93005; 93010; 96365; 96375; 99284; J0696; J1885; J2405